=== PATIENT | male | born 1970 | race Caucasian/White ===

== ENCOUNTER → 2020-05-10 | Outpatient (CLI) | payer OTHER ==
[~2020-05-10] VITALS: Ht 190.5 cm; Wt 93.0 kg
[~2020-05-10] MED LIST: ALLOPURINOL 10100 M2 PO; ANTACID325 MG PO; ASA81BEC PO; BENICAR20 MG PO; COREG CR10 MG PO; FISH OIL 1,0001 EAC9 PO; IMMUNE GLOBULIN SUBCUTANEOUS SUBQ; LEVO-T100 MCG PO; ROSUVASTATIN CA10 MG PO
--- NOTE | 2020-05-13 18:06 | PATH ---
[facility] [place] [address] PATHOLOGY RPT PROCEDURE Name: KENYA NUNEZ Room #: REG [facility] M..#: [id number] Admission: 05/10/20 Date of : 68 Discharge: Report #: [id number] Path Case #: [id number] [facility] Accession Number: [id number] . 01 Material submitted: . PART A: colon - POLYP AT ASCENDING COLON. Modifiers: ascending PART B: colon - POLYP AT SIGOID X2. Modifiers: sigmoid PART C: colon - POLYP AT SIGMOID AT 20CM. Modifiers: sigmoid PART D: rectum - POLYP AT RECTUM . 01 Clinical history: . Screening . 02 Diagnosis: A. Polyp, ascending colon, endoscopic biopsy: - Hyperplastic polyp. - Negative for dysplasia. . B. Polyp x2, sigmoid, endoscopic biopsy: - Tubular adenoma, multiple fragments. - Negative for high-grade dysplasia. . C. Polyp, at sigmoid 20 cm, endoscopic biopsy: - Tubulovillous adenoma. - Negative for high-grade dysplasia. - Polyp base/stalk showing unremarkable cauterized mucosa. . D. Polyp, at rectum, endoscopic biopsy: - Hyperplastic polyp. - Negative for dysplasia. . (IUV:ashley; 05/13/2020) [facility] 05/13/2020 1335 Local . 02 Electronically signed: . Porsha Perez MD, Pathologist NPI- [id number] . 01 Gross description: . A. The specimen is received in formalin, labeled "Kenya Nunez, polyp at ascending". Received is a segment of pale reynolds soft tissue measuring 0.7 cm in maximum dimensions. The specimen is submitted entirely in cassette A1. . B. The specimen is received in formalin, labeled "Kenya Nunez, polyp at sigmoid". Received are four segments of pale reynolds soft tissue ranging in size from 0.3 to 0.4 cm in maximum dimensions. [place] [address] PATHOLOGY RPT PROCEDURE Name: KENYA NUNEZ Room #: REG [facility]#: [id number] Admission: 05/10/20 Date of : 68 Discharge: Report #: [id number] Path Case #: [id number] entirely in cassette B1. . C. The specimen is received in formalin, labeled "Kenya Nunez, polyp at sigmoid 20 cm". Received is a segment of red-brown tissue measuring 1.5 x 1.2 x 1.0 cm in greatest dimensions with an attached stalk measuring 0.9 cm in length by 0.9 cm in diameter. The surgical margin is inked. The specimen is trisected perpendicular to the margin and entirely submitted in cassettes C1 through C3. . D. The specimen is received in formalin, labeled "Kenya Nunez, polyp at rectum". Received are two segments of pale reynolds soft tissue ranging in size from 0.3 to 0.4 cm in maximum dimensions. The specimen is submitted entirely in cassette D1. ([facility]; 05/10/2020) [facility] 05/10/2020 1623 Local . 02 Pathologist provided ICD-10: K63.5, D12.5, K62.1, Z12.11 . 02 CPT . 105567, 054750, 386501, 015294 Specimen Comment: A courtesy copy of this report has been sent to [phone], [phone] Specimen Comment: [id number] Specimen Comment: Report sent to / DR MENDOZA Performed at: [address], [place] [id number] MD Sebastian Schwartz MD Phone: [phone] Performed at: [address] [id number] MD Porsha Perez MD Phone: [phone]
--- NOTE | 2020-05-15 08:17 | P ---
[facility] [place] [address] PROCEDURE REPORT Name: KENYA RODRIGUEZ Room #: REG [facility].#: [id number] Admission: 05/10/20 Attend Phys: Sctot Pascal Discharge: Date of : 68 Report #: [id number] THIS REPORT FOR: cc: Baljit Hartley MD,Scott Grant MD, MD ~ CC: Baljit Rosenberg DATE OF SERVICE: 05/10/2020 PROCEDURE PERFORMED: Colonoscopy with polypectomies. HISTORY OF PRESENT ILLNESS: The patient is a 49-year-old male who presents today for routine screening colonoscopy. Denies any symptoms. No family history of colon cancer. DESCRIPTION OF PROCEDURE: The risks and benefits of the procedure were explained to the patient, those risks including but not limited to bleeding, perforation and the risk of sedation. He understood these risks and gave informed consent. Sedation was given using propofol per Anesthesia. Next, a digital rectal exam was initially performed, which was normal. Next, using a standard Olympus colonoscope, the scope was placed in the patient's anus and advanced under direct vision to the cecum. The overall prep was excellent. The cecum and ileocecal valve were normal in appearance. In the ascending colon, a 4-mm sessile polyp was noted. This was removed with cold forceps. The transverse and descending colon were normal. In the sigmoid colon, at approximately 40 cm two 3-4 mm sessile polyps were noted and removed with cold forceps. In the sigmoid colon, at 20 cm, a large pedunculated polyp was noted. This was 1.5 cm. This was removed by snare cautery. There was no bleeding after polypectomy; however, I did place a single endoclip to help prevent possible bleeding while in the healing process. In the rectum, a single 3 mm sessile polyp was noted and removed with cold forceps. On retroflexion, no abnormalities were noted. The scope was then withdrawn and the procedure terminated. The patient tolerated the procedure well. IMPRESSION: Multiple polyps as described above. RECOMMENDATIONS: 1. Await biopsy results. 2. Likely recommend repeat colonoscopy in [address] [address] PROCEDURE REPORT Name: KENYA RODRIGUEZ Room #: REG [facility]#: [id number] Admission: 05/10/20 Attend Phys: Scott Pascal Discharge: Date of : 68 Report #: [id number] Thank you for allowing me to participate in his care. <ELECTRONICALLY SIGNED> By: Scott Rosenberg MD 05/15/20 0817 1120 1438 Scott Rosenberg MD /nt
== END | disposition home or self-care (01) ==
LOC: GI 08:35
PROVIDERS: ATTEND Specialist
DX: Z12.11 Encounter for screening for malignant neoplasm of colon (principal); D12.5 Benign neoplasm of sigmoid colon; K62.1 Rectal polyp; I12.9 Hypertensive chronic kidney disease with stage 1 through stage 4 chronic kidney disease, or unspecified chronic kidney disease; N18.4 Chronic kidney disease, stage 4 (severe); E78.5 Hyperlipidemia, unspecified; Z98.890 Other specified postprocedural states; Z79.899 Other long term (current) drug therapy; Z96.642 Presence of left artificial hip joint; Z11.59 Encounter for screening for other viral diseases; Z98.52 Vasectomy status; Z79.82 Long term (current) use of aspirin
CPT/HCPCS: 62110; 62900